=== PATIENT | male | born 1970 | race Caucasian/White ===

== ENCOUNTER 2018-12-03 08:35 | Emergency (ER) | payer MEDICAID ==
[2018-12-03] MEDS ORDERED: Sodium Chloride 0.9% 10 ML Syringe FLUSH PRN (08:45)
[2018-12-03] MEDS ORDERED: Sodium Chloride 0.9% 500 ML IV ONE (08:45)
--- NOTE | 2018-12-03 09:11 | EDM.PDOC ---
ED HPI GENERAL MEDICAL PROBLEM - General Chief Complaint: Neuro Symptoms/Deficits Stated Complaint: STROKE SYMPTOMS Time Seen by Provider: 12/03/18 08:42 Source of Information: Reports: Patient, Family, RN Notes Reviewed (Son) - History of Present Illness INITIAL COMMENTS - FREE TEXT/NARRATIVE: 48-year-old male is brought here by son private vehicle with complete right- sided paralysis. Reported to have been up to the bathroom about 5 hours ago with no difficulty walking or focal weakness. And when he awakened about an hour later, about 4:30 mountain time or 4 hours ago his right hand and leg were "paralyzed". He was asymptomatic yesterday and last evening. He has never had any stroke type symptoms in the past. He does have history of hypertension, on medication for about 2 years. He does smoke and also does drink alcohol. He is on no prescription blood thinners. His son states that he does take ibuprofen on a when necessary basis. He has moderate headache this morning. He speaks [place], does seem to understand Greek. His son does speak fluent Greek and has been interpreting for us. He does answer questions immediately and does obey commands. He states that it seems difficult to speak clearly but his son states his words are appropriate, just mildly slurred. - Related Data Allergies Allergy/AdvReac Type Severity Reaction Status Date / Time No Known Allergies Allergy Verified 12/03/18 09:04 ED ROS GENERAL - Review of Systems Review Of Systems: See Below Constitutional: Denies: Fever, Diaphoresis HEENT: Denies: Throat Pain, Throat Swelling Respiratory: Denies: Shortness of Breath, Wheezing, Cough Cardiovascular: Denies: Chest Pain GI/Abdominal: Denies: Abdominal Pain, Nausea, Vomiting Musculoskeletal: Denies: Neck Pain, Back Pain Skin: Reports: No Symptoms Neurological: Reports: Trouble Speaking (Speech is mildly slurred), Difficulty Walking (Unable to ambulate for the past 4 hours), Weakness (Patient arrives with complete paralysis right and lower upper extremities) ED EXAM, NEURO - Physical Exam Exam: See Below General Appearance: Alert, Anxious Eye Exam: Bilateral Eye: PERRL, Other (Extraocular motion is conjugate, no deviated gaze) Ears: Normal External Exam Throat/Mouth: Normal Inspection Head Exam: Atraumatic. No: Facial Swelling Neck: Supple, Full Range of Motion Respiratory/Chest: No Respiratory Distress, Lungs Clear, Normal Breath Sounds Cardiovascular: Regular Rate, Rhythm GI/Abdominal: Soft, Non-Tender Neurological: Alert, Other (On initial exam had complete paralysis right upper and right lower extremities, no facial droop) Extremities: No: Pedal Edema, Leg Pain Skin Exam: Warm, Dry, Normal Color EKG INTERPRETATION EKG Date: 12/03/18 Rhythm: NSR [place]: Normal P-Wave: Present QRS: Normal ST-T: Normal Course - Vital Signs Last Recorded V/S: Last Vital Signs Temp 97.6 F 12/03/18 08:35 Pulse 72 12/03/18 08:35 Resp 16 12/03/18 08:35 BP 172/126 H 12/03/18 08:35 Pulse Ox 98 12/03/18 08:35 - Orders/Labs/Meds Orders: Active Orders 24 hr Category Date Time Status EKG 12 Lead [EKG Documentation Completion] [RC] STAT Care 12/03/18 08:43 Active Peripheral IV Care [RC] . DIRECTED Care 12/03/18 08:45 Active Head wo Cont [CT] Stat Exams 12/03/18 08:44 Taken Sodium Chloride 0.9% [Saline Flush] Med 12/03/18 08:45 Active 10 ml FLUSH ASDIRECTED PRN Peripheral IV Insertion Adult [OM.PC] Stat Oth 12/03/18 08:45 Ordered Medication Orders Sodium Chloride (Saline Flush) 10 ml FLUSH ASDIRECTED PRN PRN Reason: Keep Vein Open Labs: Laboratory Tests 12/03/18 12/03/18 12/03/18 Range/Units 08:45 08:45 08:45 WBC 11.50 H (4.23-9.07) K/mm3 RBC 4.98 (4.63-6.08) M/mm3 Hgb 15.4 (13.7-17.5) gm/L Hct 44.9 (40.1-51.0) % MCV 90.2 (79.0-92.2) fl MCH 30.9 (25.7-32.2) pg MCHC 34.3 (32.2-35.5) g/dl RDW Std Deviation 46.4 H (35.1-43.9) fL Plt Count 332 (163-337) K/mm3 MPV 9.6 (9.4-12.3) fl Neut % (Auto) 75.6 H (34.0-67.9) % Lymph % (Auto) 17.7 L (21.8-53.1) % [place] % (Auto) 5.2 L (5.3-12.2) % Eos % (Auto) 1.0 (0.8-7.0) Baso % (Auto) 0.2 (0.1-1.2) % Neut # (Auto) 8.71 H (1.78-5.38) K/mm3 Lymph # (Auto) 2.03 (1.32-3.57) K/mm3 [place] # (Auto) 0.60 (0.30-0.82) K/mm3 Eos # (Auto) 0.11 (0.04-0.54) K/mm3 Baso # (Auto) 0.02 (0.01-0.08) K/mm3 Sodium 142 (136-145) mEq/L Potassium 3.7 (3.5-5.1) mEq/L Chloride 106 (98-107) mEq/L Carbon Dioxide 25 (21-32) mEq/L Anion Gap 14.7 (5-15) BUN 11 (7-18) mg/dL Creatinine 1.1 (0.7-1.3) mg/dL Est Cr Clr Drug Dosing 73.31 mL/min Estimated GFR (MDRD) > 60 (>60) mL/min BUN/Creatinine Ratio 10.0 L (14-18) Glucose 105 (74-106) mg/dL POC Glucose 97 (70-105) mg/dL Calcium 8.7 (8.5-10.1) mg/dL Total Bilirubin 0.5 (0.2-1.0) mg/dL AST 22 (15-37) U/L ALT 37 (16-63) U/L Alkaline Phosphatase 81 (46-116) U/L Total Protein 7.8 (6.4-8.2) g/dl Albumin 3.5 (3.4-5.0) g/dl Globulin 4.3 gm/dL Albumin/Globulin Ratio 0.8 L (1-2) Meds: Medications Generic Name Dose Route Start Last Admin Trade Name Freq PRN Reason Stop Dose Admin Sodium Chloride 10 ml 12/03/18 08:45 Saline Flush FLUSH ASDIRECTED PRN Keep Vein Open Discontinued Medications Generic Name Dose Route Start Last Admin Trade Name Marlene PRN Reason Stop Dose Admin Sodium Chloride 500 mls @ 999 mls/hr 12/03/18 08:45 Normal Saline IV 12/03/18 09:15 .BOLUS ONE - Re-Assessments/Exams Free Text/Narrative Re-Assessment/Exam: 12/03/18 09:26. This was called as a stroke alert on arrival at 8:36. I did see patient imediately. As noted he came private vehicle so we had no prior warning. CT was called in immediately. Last known well was 5-5-1/2 hours prior to arrival. Onset of symptoms about 4 hours prior to arrival. Unfortunately CT does show hypertensive 1.5 x 2 cm hemorrhage left basal ganglia. See radiology report for details. There is some compression of the third ventricle. We did activate [employer] immediately anticipating transfer to [facility]. I have discussed this with Neurologist, Dr Loza marketing database consultant for [facility] who does accept patient in transfer. He is asking we start a nicardipine drip. [employer] flight crew is here. They are setting that up. On recheck he now has some very slight grasp R hand, mild movement of R foot which he did not have on arrival. His BP was elevated on arrival, most recent 168/112. Departure - Departure Time of Disposition: 09:30 Disposition: DC/Tfer to Acute Hospital 02 Clinical Impression: Hypertension CVA (cerebrovascular accident due to intracerebral hemorrhage) Qualifiers: Intracerebral hemorrhage etiology: nontraumatic Cerebral hemorrhage location: unspecified cerebral location Laterality: left Qualified Code(s): I61.9 - Nontraumatic intracerebral hemorrhage, unspecified - Discharge Information Referrals: PCP,None [Primary Care Provider] - Forms: ED Department Discharge - My Orders Last 24 Hours: My Active Orders 12/03/18 08:43 EKG 12 Lead [EKG Documentation Completion] [RC] STAT 12/03/18 08:44 Head wo Cont [CT] Stat 12/03/18 08:45 Peripheral IV Care [RC] . DIRECTED Sodium Chloride 0.9% [Saline Flush] 10 ml FLUSH ASDIRECTED PRN Peripheral IV Insertion Adult [OM.PC] Stat - Assessment/Plan Last 24 Hours: My Active Orders 12/03/18 08:43 EKG 12 Lead [EKG Documentation Completion] [RC] STAT 12/03/18 08:44 Head wo Cont [CT] Stat 12/03/18 08:45 Peripheral IV Care [RC] . DIRECTED Sodium Chloride 0.9% [Saline Flush] 10 ml FLUSH ASDIRECTED PRN Peripheral IV Insertion Adult [OM.PC] Stat
--- NOTE | 2018-12-04 08:05 | CT ---
Head CT Technique: Multiple axial sections through the brain were obtained. Intravenous contrast was not utilized. Comparison: No prior intracranial imaging is available. Findings: Acute hemorrhage is identified within the left basal ganglia measuring approximately 2.1 cm x 1.5 cm. This causes mass effect upon the lateral ventricle with effacement of the body and frontal horn. Less effacement is noted of the occipital horn. Ventricles are otherwise within normal limits. Slight midline shift is seen by several millimeters. No other areas of intraparenchymal hemorrhage are seen. No abnormal parenchymal densities are otherwise seen. Bone window settings were reviewed which show no acute calvarial abnormality. Air-fluid level and mucosal thickening is seen within the right maxillary sinus. Mucosal thickening and retention cyst is noted within the left maxillary sinus. Left sided retention cyst measures 1.5 cm. Impression: 1. Sinus findings. Most of findings appear to be chronic but air-fluid level noted within the right maxillary sinus which could represent acute sinusitis or retained secretions. 2. Intracranial hemorrhage which appears acute within the left basal ganglia causing effacement of the lateral ventricle and mild midline shift as noted above. Please correlate if patient has any history of hypertension as an etiology for this finding. 3. No additional abnormality is appreciated. Diagnostic code #5 I agree with preliminary report from [facility], finalized on 12/03/18, 10:30 Central Time
== END 2018-12-03 09:47 ==
LOC: EDBD 08:35 → JD.ED 08:35
DX: I61.9 Nontraumatic intracerebral hemorrhage, unspecified (principal); I10 Essential (primary) hypertension
CPT/HCPCS: 36415; 70450; 70450-26; 80053; 82962; 85025; 93005; 93010; 96360; 99284; 99285-25